=== PATIENT | male | born 1995 | race Caucasian/White ===

== ENCOUNTER 2017-09-03 09:50 | Emergency (ER) | payer OTHER ==
[~2017-09-03] VITALS: Ht 187.9 cm; Wt 113.4 kg
[~2017-09-03 09:50] MED LIST: HYDROCODONE BIT1 T11 PO; IBU800 MG PO; KEFLEX500 M1 PO
[2017-09-03] MEDS ORDERED: NAPROSYN500 MG PO (11:54)
[2017-09-03] MEDS ORDERED: CYCLOBENZAPRINE10 MG PO (11:54)
== END 2017-09-03 12:22 | disposition home or self-care (01) ==
LOC: ED 09:50
DX: S29.012A Strain of muscle and tendon of back wall of thorax, initial encounter (principal); Z79.899 Other long term (current) drug therapy; X50.0XXA Overexertion from strenuous movement or load, initial encounter; Y93.89 Activity, other specified; Y92.69 Other specified industrial and construction area as the place of occurrence of the external cause; Y99.9 Unspecified external cause status

== ENCOUNTER 2017-11-12 21:32 | Emergency (ER) | payer OTHER ==
[~2017-11-12] VITALS: Ht 187.9 cm; Wt 113.4 kg
[~2017-11-12 21:32] MED LIST changes: +CYCLOBENZAPRINE10 MG PO; +NAPROSYN500 MG PO
[2017-11-12] MEDS ORDERED: AVPAK AZITHROM250 M1 PO (23:25)
== END 2017-11-12 23:43 | disposition home or self-care (01) ==
LOC: ED 21:32
DX: J06.9 Acute upper respiratory infection, unspecified (principal)